=== PATIENT | female | born 1990 | race Caucasian/White ===

== ENCOUNTER 2024-05-09 10:22 | Inpatient (IN) | payer SELFPAY ==
[2024-05-09 10:24] VITALS: BP 107/76; PULSE 73; RESP 18; TEMP 36.2; O2SAT 100; BMI 31.2
--- NOTE | 2024-05-09 10:34 | EX.ED.DYSGE1 ---
HPI History of Present Illness Chief Complaint: Substance Abuse Informant: patient Narrative Narrative: Patient presents requesting detox from fentanyl. She has been smoking fentanyl daily for about the last 2 years. If she goes without smoking she will have withdrawal symptoms including body aches, nausea, vomiting, anxiety. Patient last used fentanyl yesterday. She is currently complaining of some nausea and back pain. She was seen at 180 yesterday. It was recommended she come to the hospital for the detox portion and they will follow-up with her. Patient denies any other medical problems. She denies possibility of . She denies any other drug use or alcohol use. [facility] Medical History no medical history no medical history Home Medications ?Medication ?Instructions ?Recorded ?Last Taken ?Type NK 05/09/24 Unknown History Allergy/AdvReac Type Severity Reaction Status Date / Time No Known Allergies Allergy Verified 05/09/24 10:24 Family History no significant family his Surgical History no surgical history Social History Smoking Status: Current every day smoker tobacco type: cigarettes ROS ROS ED Constitutional Constitutional ED: Denies chills or fever(s) ENT ENT ED: Denies rhinorrhea or sore throat Cardiovascular Cardiovascular: Denies chest pain or palpitations Respiratory/Chest Respiratory/Chest: Denies cough or dyspnea Gastrointestinal Gastrointestinal: Reports nausea; Denies abdominal pain, diarrhea or vomiting Genitourinary Genitourinary ED: Denies dysuria Musculoskeletal Musculoskeletal: Reports back pain and myalgias; Denies extremity pain Integumentary Denies Abrasions or rash Neurologic Neurologic: Denies headache(s) or weakness Psychiatric Psychiatric: Reports anxiety; Denies depression Allergic/Immunologic Allergic/Immunologic ED: Denies lip swelling or urticaria EXAM Physical Exam Const Vital Signs: 05/09/24 10:24 Temperature 97.1 F L Temperature Source Temporal Pulse Rate 73 Respiratory Rate 18 Blood Pressure 107/76 Blood Pressure Mean 86 Pulse Ox 100 Oxygen Delivery Method Room Air Positive well nourished and well developed General Appearance ED: well developed HEENT Reports moist mucous membranes Eyes EOMs intact bilaterally Chest Wall inspection of chest normal and palpation of chest normal Resp normal respiratory effort and clear to auscultation bilaterally Cardio regular rate and regular rhythm GI non-tender Palpation: soft Extremity normal to inspection Neuro oriented x3 and no sensory deficits noted Motor Exam: strength 5/5 throughout Psych mental status grossly normal Skin no rashes or lesions noted MDM MDM MDM Narrative Medical decision making narrative: Patient is given p.o. Naprosyn and Phenergan to help with pain and nausea. Lab work for addiction medicine is obtained and I will speak with hospitalist for admission once this results. Lab Data Attestation: I reviewed the patient's lab results. Labs: Laboratory Results - last 24 hr 05/09/24 10:57 WBC 14.8 H RBC 4.80 Hgb 14.3 Hct 42.5 MCV 88.5 MCH 29.8 MCHC 33.6 RDW Std Deviation 42.3 RDW Coeff of Bina 13.1 Plt Count 391 MPV 9.4 Immature Gran % (Auto) 0.900 Neut % (Auto) 58.1 Lymph % (Auto) 30.7 [place] % (Auto) 9.0 Eos % (Auto) 0.7 Baso % (Auto) 0.6 Absolute Neuts (auto) 8.6 H Absolute Lymphs (auto) 4.53 H Nucleated RBC % 0 Sodium 140 Potassium 2.9 L Chloride 109 H Carbon Dioxide 23.0 Anion Gap 8 BUN 18 Creatinine 0.88 Estim Creat Clear Calc 97.95 Est GFR (MDRD) Af Amer 94 Est GFR (MDRD) Non-Af 78 BUN/Creatinine Ratio 20.3 H Glucose 105 Calcium 8.9 Total Bilirubin 0.40 AST 10 L ALT 22 Alkaline Phosphatase 72 Total Protein 7.2 Albumin 4.0 Globulin 3.2 Albumin/Globulin Ratio 1.2 Serum , Qual NEGATIVE Ur Drug Screen Comment Ethyl Alcohol < 3.0 Treatment and Re-Evaluation :: CBC reveals white count of 14.8 with normal differential. Hemoglobin is 14.3. Chemistry studies significant for potassium of 2.9. Renal function is normal. LFTs are unremarkable. EtOH is negative. test negative. Urine tox screen is pending at this time. Patient given oral potassium replacement. I will speak with hospitalist regarding admission for the detox program. Discharge Plan Triage Chief Complaint: Substance Abuse ED Provider: Dyan Guerrero Dx/Rx/DC Orders Clinical Impression: Opiate abuse, continuous, Desire for detoxification, Hypokalemia Prescriptions: No Action NK Primary Care Provider: Care Physician,No Primary Referrals: Care Physician,No Primary [Primary Care Provider] - Print Language: Danish Disposition Disposition: Acute Care Hospital [facility]
[2024-05-09] MEDS: proMETHazine 25 MG Tablet PO (10:55)
[2024-05-09] MEDS: Naproxen 500 MG Tablet PO (10:55)
[2024-05-09 11:07] LABS: Absolute Lymphocyte Count 4.53 X10^3/uL (0.83-4.51); Absolute Neutrophil Count 8.6 X10^3/uL (2.0-7.7); Basophil# 0.09 X10^3/uL; Basophil% 0.6 % (0-1); Eosinophil# 0.11 X10^3/uL; Eosinophils% 0.7 % (0-5); Hematocrit 42.5 % (37-47); Hemoglobin 14.3 g/dL (12.0-15.0); Lymphocyte # 4.53 X10^3/ul (0.83-4.51); Lymphocyte % 30.7 % (19-41); Mean Corp Hgb Conc 33.6 g/dL (32-36); Mean Corpuscular Hgb 29.8 pg (27.0-32.0); Mean Corpuscular Volume 88.5 fL (81-99); Mean Platelet Vol. 9.4 fl (6.2-12.0); Monocyte# 1.33 X10^3/uL; NRBC Flagged by Analyzer 0 % (0-5); Neutrophil # 8.56 X10^3/uL (2.7-7.7); Neutrophil % 58.1 % (47-70); Platelet Count 391 K/mm3 (150-450); RBC Distribution Width CV 13.1 % (11.6-14.6); RBC Distribution Width SD 42.3 fl (35.1-43.9); White Blood Count 14.8 K/mm3 (4.4-11.0)
[2024-05-09 11:32] LABS: ALB/GLOB Ratio 1.2 RATIO (0.9-2.4); AST(SGOT) 10 U/L (15-37); Alanine Aminotransfer ALT/SGPT 22 U/L (13-56); Alkaline Phosphatase 72 U/L (45-117); Anion Gap 8 (5-15); BUN 18 mg/dL (7-18); BUN/Creat Ratio 20.3 RATIO (10-20); Calcium,Total 8.9 mg/dL (8.5-10.1); Chloride 109 mmol/L (98-107); Creatinine, Serum 0.88 mg/dL (0.55-1.02); EST Glomerular Filtration Rate 78 mL/min (>60); Est Glom Filt Rate - Afr Amer 94 mL/min (>60); Estimated Creatinine Clearance 97.95 ml/min; Globulin 3.2 g/dL (2.2-4.2); Glucose 105 mg/dL (74-106); Potassium 2.9 mmol/L (3.5-5.1); Protein, Total 7.2 g/dL (6.4-8.2); Sodium Level 140 mmol/L (136-145)
[2024-05-09 11:38] LABS: Alcohol, Blood (Medical)-Serum < 3.0 mg/dL
[2024-05-09 11:40] LABS: Internal QC Validated? YES +Cl - CLEAR BKGD; Pregnancy, Serum, hCG Quali. NEGATIVE Negative
--- NOTE | 2024-05-09 12:01 | PCM.HP.STD ---
HPI - General General Date of Admission: 05/09/24 Date of Service: 05/09/24 Chief Complaint: Opiate detox HPI Narrative ELROY LOPEZ, is a 33 F who presented to the emergency department at [facility] on 05/09/2020 for requesting detox from fentanyl. Patient states she smokes on a daily basis and has done so for about 2 years. She has had no periods of sobriety during that time period. She is never used IV drugs and denies any other substance use. Her last use was the day prior to presentation and she is currently experiencing myalgias, anxiety, nausea and diarrhea. She recently moved here from [place] and is living with her sister. She went to [facility] for help and they advised her to come in for detox. She admits to smoking tobacco on a daily basis. Vital signs on presentation showed temperature of 98, heart rate 88, blood pressure 110/76, sats were 99% on room air. CBC shows a mild leukocytosis with a white count of 14.8 but is otherwise unremarkable. She does not have a left shift. Her chemistry panel showed hypokalemia with a potassium of 2.9 and normal renal function. Liver functions unremarkable. Toxicology screen is pending on admission and her ethyl alcohol level was less than 3. She was admitted to the medical floor and placed on a buprenorphine taper as well as supportive medications and her potassium was replaced. [facility] Medical History Anxiety Depression Substance abuse Smoker Tobacco abuse Medical History no medical history Home Medications ?Medication ?Instructions ?Recorded ?Last Taken ?Type NK 05/09/24 Unknown History Allergy/AdvReac Type Severity Reaction Status Date / Time No Known Allergies Allergy Verified 05/09/24 10:24 Family History no significant family his no significant family history Surgical History no surgical history no surgical history Social History (Updated 05/09/24 @ 12:[address] Sonia Galindo DO) household members: family housing: house Smoking Status: Current every day smoker tobacco type: cigarettes alcohol intake: never substance use type: opiates ROS Constitutional Constitutional: Reports anorexia, chills and malaise; Denies change in weight, fatigue, fever(s), night sweats, weakness or other Eyes Eyes: Denies blurry vision, change in eye color, change in vision, discharge from eye(s), double vision, erythema, eye pain, loss of vision or other ENT HEENT: Denies abnormal hearing, dysphagia, ear pain, epistaxis, headache(s), hearing loss, nasal congestion, nasal discharge, post nasal drip, sinus pressure, sore throat or other Cardiovascular Cardiovascular: Reports edema; Denies chest pain, claudication, dyspnea on exertion, lightheadedness, orthopnea, palpitations, paroxysmal nocturnal dyspnea, rapid heart rate, syncope or other Respiratory/Chest Respiratory/Chest: Denies cough, dyspnea, excessive phlegm production, hemoptysis, productive cough, shortness of breath at rest, shortness of breath with exertion, wheezing or other Gastrointestinal Gastrointestinal: Reports abdominal pain, diarrhea, nausea and vomiting Genitourinary Genitourinary: Denies burning urination, difficulty urinating, dysuria, hematuria, nocturia, urinary frequency, urinary hesitancy, urinary incontinence, urinary urgency or other Musculoskeletal Musculoskeletal: Reports myalgias; Denies arthralgias, back pain, joint pain, joint stiffness, joint swelling, neck pain or other Neurologic Neurologic: Denies abnormal gait, abnormal speech, confusion, disequilibrium, dizziness, focal weakness, headache(s), numbness, paresthesias, seizure-like activity, seizures, syncope, tingling, tremor(s) or other Psychiatric Psychiatric: Reports anxiety and depression; Denies homicidal ideation, suicidal ideation or other Endocrine Endocrinology: Denies change in body appearance, cold intolerance, excessive sweating, heat intolerance, polydipsia, polyuria or other Hematologic/Lymphatic Hematologic/Lymphatic: Denies anemia, easy bleeding, easy bruising, lymphadenopathy or other Allergic/Immunologic Allergic/Immunologic: Denies rhinitis, hives, eczemia, asthma or other Vital Signs Vital Signs Vital Signs: 05/09/24 10:24 Temperature 97.1 F L Temperature Source Temporal Pulse Rate 73 Respiratory Rate 18 Blood Pressure 107/76 Blood Pressure Mean 86 Pulse Ox 100 Oxygen Delivery Method Room Air Weight Weight: 85.094 kg Body Mass Index (BMI) 31.2 Physical Exam Const alert, oriented x3, no apparent distress, healthy appearing and well nourished; Negative for average body habitus Constitutional Narrative: Obese, lower middle-aged, white female, sitting up in bed, sister at bedside, patient appears uncomfortable but not toxic General Appearance: cooperative HEENT normocephalic, head/scalp atraumatic, hearing grossly normal bilaterally and moist oral mucous membranes HEENT Narrative: Mallampati 2, no thrush Resp normal respiratory effort, no retractions, no use of accessory muscles and clear to auscultation bilaterally Auscultation: Negative for rales, rhonchi or wheezes Cardio regular rate, regular rhythm, S1 normal heart sound, S2 normal heart sound, no murmurs, no rub, no gallops and no clicks GI normal to inspection, nondistended, normoactive bowel sounds and soft to palpation GI Narrative: Mild diffuse tenderness Extremity no clubbing, cyanosis or edema Extremity Narrative: Pedal and radial pulses are 2+ Neuro oriented x3, moves all extremities and no focal motor deficits Speech: speech normal Psych Psych Narrative: Affect is slightly flat but patient is pleasant and makes good eye contact Mood & Affect: anxious Results Lab / Micro Data 05/09/24 10:57 05/09/24 10:57 Labs: Laboratory Results - last 24 hr 05/09/24 10:57: WBC 14.8 H, RBC 4.80, Hgb 14.3, Hct 42.5, MCV 88.5, MCH 29.8, MCHC 33.6, RDW Std Deviation 42.3, RDW Coeff of Bina 13.1, Plt Count 391, MPV 9.4, Immature Gran % (Auto) 0.900, Neut % (Auto) 58.1, Lymph % (Auto) 30.7, [place] % (Auto) 9.0, Eos % (Auto) 0.7, Baso % (Auto) 0.6, Absolute Neuts (auto) 8.6 H, Absolute Lymphs (auto) 4.53 H, Nucleated RBC % 0, Sodium 140, Potassium 2.9 L, Chloride 109 H, Carbon Dioxide 23.0, Anion Gap 8, BUN 18, Creatinine 0.88, Estim Creat Clear Calc 97.95, Est GFR (MDRD) Af Amer 94, Est GFR (MDRD) Non-Af 78, BUN/Creatinine Ratio 20.3 H, Glucose 105, Calcium 8.9, Total Bilirubin 0.40, AST 10 L, ALT 22, Alkaline Phosphatase 72, Total Protein 7.2, Albumin 4.0, Globulin 3.2, Albumin/Globulin Ratio 1.2, Serum , Qual NEGATIVE, Ur Drug Screen Comment , Ethyl Alcohol < 3.0 Assessment & Plan Assessment/Plan (1) Hypokalemia: (2) Desire for detoxification: (3) Opiate abuse, continuous: (4) Leukocytosis: PLAN: Plan Acute opiate withdrawal secondary to chronic opiate abuse -Has been using for 2 years -No periods of sobriety -Start buprenorphine taper per [facility] protocol -Supportive medication for symptom control -180 consultation for assistance with discharge planning -Social work/case management consultation Leukocytosis -Suspect reactive -no signs of infection -Monitor Hypokalemia -Patient was given 40 mill equivalents of p.o. potassium in the emergency department -Recheck in a.m. -Check a.m. magnesium level Tobacco abuse -Recommend cessation -Nicotine patch available Obesity -BMI 31.6 next-recommend weight loss DVT prophylaxis -Low risk -Encourage early and frequent ambulation CODE STATUS -Full code Charges/Coding Visit Charges Inpatient E&M: 78363 Init Hosp L2
[2024-05-09 12:15] VITALS: BP 110/76; PULSE 88; RESP 18; TEMP 36.6; O2SAT 99
[2024-05-09] MEDS: Potassium Chloride Oral Tablet 20 MEQ 40 MEQ PO (12:20)
[2024-05-09 12:41] VITALS: BMI 31.6
[2024-05-09 12:49] VITALS: BP 120/80; PULSE 68; RESP 16; TEMP 36.9; O2SAT 100
[2024-05-09] MEDS: Dicyclomine 10 MG Capsule 20 MG PO (13:01)
[2024-05-09] MEDS: Ibuprofen 400 MG Tablet PO (13:01)
[2024-05-09 13:03] LABS: Amphetamine Urine VISTA NEGATIVE (<1000 ng/mL); Barbiturate Urine VISTA NEGATIVE (< 200 ng/mL); Benzodiazepine Urine VISTA NEGATIVE (< 200 ng/mL); Cocaine Urine VISTA NEGATIVE (< 300 ng/mL); Ecstacy Urine VISTA POSITIVE (< 500 ng/mL); Methadone Urine VISTA NEGATIVE (< 300 ng/mL); PCP Urine VISTA NEGATIVE (< 25 ng/mL); THC Urine VISTA NEGATIVE (< 50 ng/mL)
[2024-05-09 13:05] LABS: Vista UDS pH Range 5
[2024-05-09] MEDS: Buprenorphine HCl 2 MG TAB.SUBL SL ×2 (15:07→22:04)
[2024-05-09 15:46] VITALS: BP 132/84; PULSE 75; RESP 16; TEMP 37.3; O2SAT 100
[2024-05-09] MEDS: Gabapentin 300 MG Capsule PO (16:08)
[2024-05-09] MEDS: Ensure Plus High Protein 120 ML LIQUID PO (16:10)
[2024-05-09 20:14] VITALS: BP 130/78; PULSE 68; RESP 18; TEMP 37.3; O2SAT 99
[2024-05-09] MEDS: hydrOXYzine PAM 25 MG Capsule 50 MG PO (20:16)
[2024-05-09] MEDS: Methocarbamol 750 MG Tablet PO (20:18)
[2024-05-09] MEDS: traZODone 100 MG Tablet PO (22:04)
[2024-05-10] VITALS (7 sets, daily range): BP systolic 104–140; BP diastolic 59–84; PULSE 71–87; RESP 15–18; TEMP 36.7–37.3; O2SAT 96–99
[2024-05-10] MEDS: hydrOXYzine PAM 25 MG Capsule 50 MG PO ×3 (03:39→17:34)
[2024-05-10] MEDS: cloNIDine HCl 0.1 MG Tablet PO ×2 (03:39→20:32)
[2024-05-10] MEDS: Buprenorphine HCl 2 MG TAB.SUBL SL ×3 (06:32→23:06)
[2024-05-10 07:19] LABS: Absolute Lymphocyte Count 5.76 X10^3/uL (0.83-4.51); Absolute Neutrophil Count 4.5 X10^3/uL (2.0-7.7); Basophil# 0.06 X10^3/uL; Basophil% 0.5 % (0-1); Eosinophil# 0.26 X10^3/uL; Eosinophils% 2.3 % (0-5); Hematocrit 38.8 % (37-47); Hemoglobin 12.8 g/dL (12.0-15.0); Lymphocyte # 5.76 X10^3/ul (0.83-4.51); Lymphocyte % 50.7 % (19-41); Mean Corpuscular Hgb 29.5 pg (27.0-32.0); Mean Corpuscular Volume 89.4 fL (81-99); Mean Platelet Vol. 9.2 fl (6.2-12.0); Monocyte# 0.74 X10^3/uL; Monocyte% 6.5 % (0-10); NRBC Flagged by Analyzer 0 % (0-5); Neutrophil # 4.48 X10^3/uL (2.7-7.7); Neutrophil % 39.4 % (47-70); POSITIVE DIFFERENTIAL YES; POSITIVE MORPHOLOGY YES; Platelet Count 377 K/mm3 (150-450); RBC Distribution Width CV 13.2 % (11.6-14.6); RBC Distribution Width SD 43.8 fl (35.1-43.9); Red Blood Count 4.34 M/mm3 (4.2-5.4); White Blood Count 11.4 K/mm3 (4.4-11.0)
[2024-05-10 07:43] LABS: Anion Gap 6 (5-15); BUN 15 mg/dL (7-18); BUN/Creat Ratio 23.2 RATIO (10-20); Calcium,Total 8.3 mg/dL (8.5-10.1); Chloride 112 mmol/L (98-107); Creatinine, Serum 0.65 mg/dL (0.55-1.02); EST Glomerular Filtration Rate 112 mL/min (>60); Est Glom Filt Rate - Afr Amer 135 mL/min (>60); Estimated Creatinine Clearance 133.46 ml/min; Glucose 107 mg/dL (74-106); Magnesium 2.3 mg/dL (1.6-2.6); Potassium 3.3 mmol/L (3.5-5.1); Sodium Level 142 mmol/L (136-145)
[2024-05-10 08:00] LABS: Differential Indicated SCAN CRITERIA MET
[2024-05-10] MEDS: Ensure Plus High Protein 120 ML LIQUID PO ×3 (08:24→17:31)
[2024-05-10] MEDS: Potassium Chloride Oral Tablet 20 MEQ 40 MEQ PO (09:20)
[2024-05-10 11:16] LABS: Differential Comment SCANNED; Reactive Lymphocyte 1+
--- NOTE | 2024-05-10 12:09 | PCM.PN.HOSP ---
Reason for Visit Reason for Visit: Acute opiate withdrawal/detox Subjective Subjective Patient states she is feeling better today than yesterday. Still not feeling great. Legs are still somewhat painful but better. No acute complaints at this time. Grateful for care. Objective Data Objective Data Vital Signs: Vital Signs Temp Pulse Resp BP Pulse Ox O2 Del Method 98.2 F 71 16 105/72 98 Room Air 05/10/24 11:37 05/10/24 11:37 05/10/24 11:37 05/10/24 11:37 05/10/24 11:37 05/10/24 11:37 Oxygen Delivery Method Room Air Weight: 86.183 kg Body Mass Index (BMI) 31.6 Intake & Output: Intake and Output for Last 24 Hours 05/08/24 05/09/24 05/10/24 23:59 23:59 23:59 Intake Total 550 / 550 950 / 950 Balance 550 / 550 950 / 950 Lab / Micro Data 05/10/24 06:36 05/10/24 06:36 Labs: Laboratory Results - last 24 hr 05/09/24 10:57: Urine Opiates Screen NEGATIVE, Urine Methadone Screen NEGATIVE, Ur Barbiturates Screen NEGATIVE, Ur Phencyclidine Scrn NEGATIVE, Ur Amphetamines Screen NEGATIVE, MDMA (Ecstasy) Screen POSITIVE H, U Benzodiazepines Scrn NEGATIVE, Urine Cocaine Screen NEGATIVE, U Cannabinoids Screen NEGATIVE 05/10/24 06:36: WBC 11.4 H, RBC 4.34, Hgb 12.8, Hct 38.8, MCV 89.4, MCH 29.5, MCHC 33.0, RDW Std Deviation 43.8, RDW Coeff of Bina 13.2, Plt Count 377, MPV 9.2, Immature Gran % (Auto) 0.600, Neut % (Auto) 39.4 L, Lymph % (Auto) 50.7 H, [place] % (Auto) 6.5, Eos % (Auto) 2.3, Baso % (Auto) 0.5, Absolute Neuts (auto) 4.5, Absolute Lymphs (auto) 5.76 H, Nucleated RBC % 0, Differential Comment SCANNED, Reactive Lymphocytes 1+, Sodium 142, Potassium 3.3 L, Chloride 112 H, Carbon Dioxide 24.0, Anion Gap 6, BUN 15, Creatinine 0.65, Estim Creat Clear Calc 133.46, Est GFR (MDRD) Af Amer 135, Est GFR (MDRD) Non-Af 112, BUN/Creatinine Ratio 23.2 H, Glucose 107 H, Calcium 8.3 L, Magnesium 2.3 Physical Exam Const alert, oriented x3, no apparent distress, healthy appearing and well nourished; Negative for average body habitus Constitutional Narrative: Obese, lower middle-aged, lying in bed, watching television, patient appears comfortable, nontoxic General Appearance: cooperative HEENT normocephalic, head/scalp atraumatic, hearing grossly normal bilaterally and moist oral mucous membranes Resp normal respiratory effort, no retractions, no use of accessory muscles and clear to auscultation bilaterally Auscultation: Negative for rales, rhonchi or wheezes Cardio regular rate, regular rhythm, S1 normal heart sound, S2 normal heart sound, no murmurs, no rub, no gallops and no clicks GI normal to inspection, nondistended, normoactive bowel sounds, soft to palpation and non-tender Extremity no clubbing, cyanosis or edema Extremity Narrative: Pedal and radial pulses are 2+ Neuro oriented x3, moves all extremities and no focal motor deficits Speech: speech normal Psych Psych Narrative: Affect remains slightly flat however patient appears more calm I figured she would not and less anxious today, eye contact remains good Mood & Affect: anxious Assessment & Plan Assessment/Plan (1) Hypokalemia: (2) Desire for detoxification: (3) Opiate abuse, continuous: (4) Leukocytosis: PLAN: Plan Acute opiate withdrawal secondary to chronic opiate abuse -Has been using for 2 years -No periods of sobriety -Continue buprenorphine taper -Supportive medication for symptom control -180 consultation for assistance with discharge planning--> given holiday anticipate they will see tomorrow -Social work/case management consultation--will see tomorrow> Leukocytosis -Trending down Hypokalemia -Improved but not resolved -Will give another 40 mill equivalents of p.o. potassium today and recheck in the a.m. -Magnesium levels within normal limits Tobacco abuse -Recommend cessation -Nicotine patch available Obesity -BMI 31.6 -recommend weight loss DVT prophylaxis -Low risk -Encourage early and frequent ambulation CODE STATUS -Full code Charges/Coding Visit Charges Inpatient E&M: 23646 Subs Hosp L2
[2024-05-10] MEDS: Gabapentin 300 MG Capsule PO (14:24)
[2024-05-10] MEDS: Dicyclomine 10 MG Capsule 20 MG PO (14:24)
[2024-05-10] MEDS: Methocarbamol 750 MG Tablet PO (20:32)
[2024-05-11] MEDS: traZODone 100 MG Tablet PO ×2 (01:25→20:53)
[2024-05-11 01:34] VITALS: BP 103/68; PULSE 73; RESP 15; TEMP 36.4; O2SAT 98
[2024-05-11 02:00] VITALS: RESP 15; O2SAT 99
[2024-05-11] MEDS: Acetaminophen 325 MG Tablet 650 MG PO (02:43)
[2024-05-11] MEDS: hydrOXYzine PAM 25 MG Capsule 50 MG PO ×2 (02:44→20:53)
[2024-05-11] MEDS: Buprenorphine HCl 2 MG TAB.SUBL SL ×2 (06:58→15:06)
[2024-05-11 07:47] VITALS: BP 112/64; PULSE 78; RESP 18; TEMP 36.8; O2SAT 100
[2024-05-11] MEDS: Gabapentin 300 MG Capsule PO ×2 (07:55→18:10)
[2024-05-11 09:32] VITALS: O2SAT 97
[2024-05-11 10:17] LABS: Potassium 4.2 mmol/L (3.5-5.1)
--- NOTE | 2024-05-11 11:00 | PCM.PN.HOSP ---
Reason for Visit Reason for Visit: Opiate detox Subjective Subjective Patient states her leg aching and body aches are much better. Feels even better than yesterday. Potassium issues have resolved. We did discuss that if she continues to feel well over the next 24 hours possible discharge tomorrow with outpatient follow-up at 180. 180 should evaluate the patient today. Objective Data Objective Data Vital Signs: Vital Signs Temp Pulse Resp BP Pulse Ox O2 Del Method 98.3 F 78 18 112/64 97 Room Air 05/11/24 07:47 05/11/24 07:47 05/11/24 07:47 05/11/24 07:47 05/11/24 09:32 05/11/24 09:32 Oxygen Delivery Method Room Air Weight: 86.183 kg Body Mass Index (BMI) 31.6 Intake & Output: Intake and Output for Last 24 Hours 05/09/24 05/10/24 05/11/24 23:59 23:59 23:59 Intake Total 550 / 550 1550 / 1550 Balance 550 / 550 1550 / 1550 Lab / Micro Data 05/10/24 06:36 05/11/24 08:20 Labs: Laboratory Results - last 24 hr 05/10/24 06:36: Differential Comment SCANNED, Reactive Lymphocytes 1+ 05/11/24 08:20: Potassium 4.2 Physical Exam Const alert, oriented x3, no apparent distress, healthy appearing and well nourished; Negative for average body habitus Constitutional Narrative: Obese, lower middle-aged, lying in bed, watching television, patient appears comfortable, nontoxic HEENT normocephalic, head/scalp atraumatic and hearing grossly normal bilaterally GI GI Narrative: Mild diffuse tenderness Neuro oriented x3, moves all extremities and no focal motor deficits Speech: speech normal Psych affect normal Psych Narrative: Affect is still slightly flat however eye contact is good patient interacts appropriately Assessment & Plan Assessment/Plan (1) Hypokalemia: (2) Desire for detoxification: (3) Opiate abuse, continuous: (4) Leukocytosis: PLAN: Plan Acute opiate withdrawal secondary to chronic opiate abuse -Has been using for 2 years -No periods of sobriety -Continue buprenorphine taper -Supportive medication for symptom control -180 consultation pending and anticipate evaluation today--> patient ultimately plans on following up at 180 at discharge -Social work/case management to see today Hypokalemia -Resolved Tobacco abuse -Recommend cessation -Nicotine patch available Obesity -BMI 31.6 -recommend weight loss DVT prophylaxis -Low risk -Encourage early and frequent ambulation CODE STATUS -Full code Charges/Coding Visit Charges Inpatient E&M: 53768 Subs Hosp L1
--- NOTE | 2024-05-11 14:28 | CASEMGMT ---
Social Work SW met with pt and introduced self and role of SW. SW met with pt to discuss finances as pt has no insurance. Pt states she has moved back to [place] from [facility] where she has lived for several years. Pt is living with her sister and her family is supportive. Pt expresses desire to apply for [place] Medicaid and states she has [place] Medicaid, but it was prior to [facility] and has not had it since. SW provided pt with community resources including Romelia Khanna, [employer], prescription assistant professor nurse education, [employer] and [employer]. Pt appreciative of information. Referral made to Kelle at [employer] to assist pt in completing Medicaid application. Pt denies any other needs at this time. LARON Wall
--- NOTE | 2024-05-11 14:30 | PCA ---
Assessment appointment scheduled with one [facility] at 0830 on Tuesday 05/15
[2024-05-11 15:05] VITALS: BP 115/54; PULSE 82; RESP 18; TEMP 36.6; O2SAT 98
--- NOTE | 2024-05-11 17:23 | ADDICTION ---
Pt was met w/for RAMP assessment and to complete AUDIT, DUDIT, ASAM, [place] and DC plan. Pt reports she is not interested in residential tx. Pt is planning to follow up with [facility] on Tuesday for walk in assessment and MAT services. Medical dept at [facility] was informed of pt's assessment Tuesday. Pt states her family is supportive and they will transport her home from detox.
[2024-05-11] MEDS: Ondansetron 8 MG Tablet PO (18:10)
[2024-05-11 20:33] VITALS: BP 112/81; PULSE 84; RESP 15; TEMP 36.8; O2SAT 99
[2024-05-11] MEDS: cloNIDine HCl 0.1 MG Tablet PO (20:53)
[2024-05-12] MEDS: Buprenorphine HCl 2 MG TAB.SUBL SL (03:01)
[2024-05-12 03:02] VITALS: BP 104/65; PULSE 73; RESP 15; TEMP 36.6; O2SAT 100
[2024-05-12 08:33] VITALS: BP 93/55; PULSE 77; RESP 16; TEMP 36.6; O2SAT 100
--- NOTE | 2024-05-12 11:01 | DS.PCM_ITS ---
Providers Date of Admission: 05/09/24 Date of Discharge: 05/12/24 Primary Care Physician: No Primary Care Phys Reason For Visit: OPIATE DETOX Diagnosis Discharge Diagnosis (1) Hypokalemia: Status: Acute Code(s): E87.6 - Hypokalemia (2) Desire for detoxification: Status: Acute (3) Opiate abuse, continuous: Status: Acute Code(s): F11.10 - Opioid abuse, uncomplicated (4) Leukocytosis: Status: Acute Code(s): D72.829 - Elevated white blood cell count, unspecified Medications at Discharge Home Medications gabapentin 300 mg capsule 300 mg PO QHS #30 caps 05/12/24 hydroxyzine pamoate 25 mg capsule 50 mg (2 x 25 mg) PO Q6H PRN PRN anxiety/restlessness #120 caps 05/12/24 Hospital Course Operations None Procedures None Summary of Care Provided Minutes Spent on Discharge: 29 Hospital Course: ELROY LOPEZ, is a 33 F who presented to the emergency department at [facility] on 05/09/2020 for requesting detox from fentanyl. Patient states she smokes on a daily basis and has done so for about 2 years. She has had no periods of sobriety during that time period. She is never used IV drugs and denies any other substance use. Her last use was the day prior to presentation and she is currently experiencing myalgias, anxiety, nausea and diarrhea. She recently moved here from [place] and is living with her sister. She went to [facility] for help and they advised her to come in for detox. She admits to smoking tobacco on a daily basis. Vital signs on presentation showed temperature of 98, heart rate 88, blood pressure 110/76, sats were 99% on room air. CBC shows a mild leukocytosis with a white count of 14.8 but is otherwise unremarkable. She does not have a left shift. Her chemistry panel showed hypokalemia with a potassium of 2.9 and normal renal function. Liver functions unremarkable. Toxicology screen is pending on admission and her ethyl alcohol level was less than 3. Pt was admitted and placed on a Subutex taper and supportive medications for symptom control. Her detox was uneventful and she was feeling much better except for some anxiety and restlessness at night predominantly so we did prescribe hydroxazine and gabapentin. All of her other withdrawal related symptoms have resolved and she states she has restlessness and anxiety at night anyway. When ED did evaluate her while she was hospitalized and her plan is to follow-up on Tuesday at 180. She already has an appointment. I have requested that she get a primary care physician in the area so she does have follow-up for medical care. She was discharged home in stable condition on 05/12/2024. Discharge diagnoses: Acute opiate withdrawal Chronic opiate abuse Leukocytosis-resolved Hypokalemia-resolved Tobacco abuse Obesity Physical Exam Const alert, oriented x3, no apparent distress, no limitations, healthy appearing and well nourished; Negative for average body habitus Constitutional Narrative: Obese, lower middle-aged, lying in bed, watching television, patient appears comfortable, nontoxic General Appearance: cooperative, comfortable, well kempt and well developed Exam Limitations: no limitations Nutritional Appearance: obese HEENT normocephalic, head/scalp atraumatic, hearing grossly normal bilaterally and moist oral mucous membranes HEENT Narrative: Mallampati 2, no thrush Resp normal respiratory effort, no retractions, no use of accessory muscles and clear to auscultation bilaterally Auscultation: Negative for rales, rhonchi or wheezes Cardio regular rate, regular rhythm, S1 normal heart sound, S2 normal heart sound, no murmurs, no rub, no gallops and no clicks GI normal to inspection, nondistended, normoactive bowel sounds, soft to palpation and non-tender Extremity no clubbing, cyanosis or edema Extremity Narrative: Pedal and radial pulses are 2+ Skin no rashes or lesions noted, no wounds, skin turgor normal and no jaundice Skin Narrative: scattered tattoos Neuro oriented x3, CN's II-XII intact bilaterally, moves all extremities and no focal motor deficits Speech: speech normal Psych affect normal Psych Narrative: eye contact is good patient interacts appropriately Weight / BMI Weight Weight: 86.183 kg Body Mass Index (BMI) 31.6 ABG / Lab / Microbiology Data 05/10/24 06:36 05/11/24 08:20 D/C Instructions Discharge Diet: No restrictions Discharge Activity: Return to Normal Activity Return to work on: 05/14/24 Meaningful Use Info Meaningful Use Meaningful Use Diagnoses (Choose all that apply): None applicable Ischemic Stroke Statin Dosing Therapy Reference: STATIN DOSE THERAPY REFERENCE: * Patients > 75 years receive moderate or high dose statin therapy. * Patients 75 years or YOUNGER should receive HIGH intensity statin dose unless contraindicated. You will be required to document reason for non-treatment if statin daily dose does not meet guidelines. HIGH DOSE STATIN THERAPY DAILY Atorvastatin > than or = to 40 mg Rosuvastatin > than or = to 20 mg Amlodipine + Atorvastatin > than or = to 2.5/40 mg Ezetimibe + Simvastatin 10/80 mg Simvastatin 80mg Discharge Plan Admission Admit Date/Time: 05/09/24 11:58 Primary Reason for Your Visit: Opiate detox Attending Provider: Sonia Galindo Primary Care Provider: Care Physician,Fide Primary Instructions Additional Instructions / Restrictions: 1. Follow up at 180 on Tuesday as scheduled 2. Find PCP for follow-up as an outpatient for general medical care Discharge Orders/Prescriptions Prescriptions: New hydroxyzine pamoate 25 mg Capsule 50 mg PO Q6H PRN PRN (Reason: anxiety/restlessness) Qty: 120 0RF gabapentin 300 mg Capsule 300 mg PO QHS Qty: 30 0RF Referrals / Follow Up: Care Physician,No Primary [Primary Care Provider] - Disposition Disposition (needs filled in before D/C Order can be placed): Home, Self Care Charges/Coding Visit Charges Inpatient E&M: [id number] Disch Hosp
== END 2024-05-12 12:36 | disposition home or self-care (01) | DRG 897 ==
LOC: ED 11:51 → MS3 12:10
PROVIDERS: Admitting Provider Internal Medicine; Emergency Provider Emergency Medicine; Visit Provider Internal Medicine
DX: F11.13 Opioid abuse with withdrawal (principal); E66.9 Obesity, unspecified; E87.6 Hypokalemia; F17.210 Nicotine dependence, cigarettes, uncomplicated; Z68.31 Body mass index [BMI] 31.0-31.9, adult
CPT/HCPCS: 36415; 80048; 80053; 80307; 80320; 83735; 84132; 84703; 85025; 99283; G0480